=== PATIENT | female | born 1935 | race Caucasian/White ===

== ENCOUNTER 2017-10-18 15:35 | Outpatient (CLI) | payer MEDICARE, OTHER | END 2017-10-18 15:36 | disposition home or self-care (01) | LOC: BICMAMMO 15:35 | PROVIDERS: ATTEND Internal Medicine | DX: Z12.31 Encounter for screening mammogram for malignant neoplasm of breast (principal) | CPT/HCPCS: 77063; 77067 ==

== ENCOUNTER 2018-12-12 08:46 | Outpatient (CLI) | payer MEDICARE, OTHER ==
--- NOTE | 2018-12-12 09:58 | CT ---
Head CT with and without contrast: 12/12/2018 COMPARISON: 12/09/2006 HISTORY: Memory loss, dizzy spells at night, dementia TECHNIQUE: Axial CT imaging at 5 mm intervals from vertex through skull base with and without IV cont rast FINDINGS: The imaged paranasal sinuses and mastoid air cells are well aerated. No displaced calvarial fracture. The noncontrast enhanced imaging demonstrates no intracranial hemorrhage, midline shift, or mass effe ct. Multifocal periventricular, deep, and subcortical white matter hypodensity noted, evidence of small vessel disease. Postcontrast imaging demonstrates no abnormal enhancement within the brain parenchyma. This study is not tailored to assess the arterial structures. IMPRESSION: No acute findings. Chronic findings as described above.
[2018-12-12] MEDS ORDERED: ISOVUE-370 76%-LOCM 1 ML ONE (10:47)
== END 2018-12-12 08:47 | disposition home or self-care (01) ==
LOC: BICCT 08:46
PROVIDERS: ATTEND Internal Medicine
DX: R42 Dizziness and giddiness (principal); R41.3 Other amnesia; I67.82 Cerebral ischemia; R90.82 White matter disease, unspecified
CPT/HCPCS: 70470; Q9966

== ENCOUNTER 2021-10-03 16:41 | Observation (INO) | payer MEDICARE ==
[2021-10-03] MEDS ORDERED: Acetaminophen 500 MG TAB ONE (17:18)
[2021-10-03 17:30] LABS: #Monocytes 0.5 thou/uL (0.11-0.59); #Neutrophils 5.2 thou/uL (1.40-6.50); %Basophils 0.1 % (0.0-1.0); %Eosinophils 0.3 % (0.0-10.0); %Lymphocytes 14.7 % (21.0-51.0); %Monocytes 7.6 % (0.0-10.0); %Neutrophils 77.3 % (42.0-75.0); Hemoglobin 11.7 g/dL (12.0-16.0); Mean Corpuscular HGB CONC 32.1 g/dL (32.0-36.0); Mean Corpuscular Hemoglobin 32.2 pg (27.0-31.0); Mean Platelet Volume 6.6 fL (7.4-10.4); Platelet Count 253 thou/uL (130-400); Red Blood Cell (RBC) Count 3.63 mill/uL (4.20-5.40); White Blood Cell (WBC) Count 6.7 thou/uL (4.8-10.8)
[2021-10-03 17:55] LABS: ALT (SGPT) Less than 7 U/L (8-55); AST (SGOT) 10 U/L (5-34); Albumin 3.6 g/dL (3.4-4.8); Alkaline Phosphatase 77 U/L (40-110); Anion Gap 14 mmol/L (10-20); BUN (Urea Nitrogen) 14 mg/dL (9.8-20.1); Bilirubin, Total 0.8 mg/dL (0.2-1.2); Calc. Creatinine Clearance 0 mL/min (70-130); Calcium 8.9 mg/dL (7.8-10.44); Carbon Dioxide 26 mmol/L (23-31); Chloride 102 mmol/L (98-107); Estimated GFR 73; Globulin 3.4 g/dL (2.4-3.5); Glucose 107 mg/dL (83-110); Potassium 4.2 mmol/L (3.5-5.1); Sodium 138 mmol/L (136-145)
[2021-10-03 18:08] LABS: SARS-CoV-2 NAA Rapid Test DETECTED (NotDetected)
[2021-10-03 18:18] LABS: CKMB 0.7 ng/mL (0-6.6)
[2021-10-03] MEDS ORDERED: Aspirin 325 MG TAB ONE (18:26)
[2021-10-03 19:03] LABS: Bilirubin Negative (Negative); Blood, Urine Negative (Negative); Clarity Turbid (Clear); Glucose, Urine (Dipstick) Normal (Negative); Ketone, Urine Negative (Negative); Leukocyte Negative Leu/uL (Negative); Nitrite Negative (Negative); Protein, Urine (Dipstick) 50 mg/dL (Neg-Trace); RBC/HPF 0-3 HPF (0-3); Specific Gravity, Urine 1.023 (1.002-1.036); Squamous Epithelial 0-3 HPF (0-3); Urobilinogen Normal mg/dL (Less than 2); WBC/HPF 0-3 HPF (0-3)
[2021-10-03 19:09] LABS: Troponin I 0.054 ng/mL (< 0.028)
[2021-10-03 19:16] LABS: Bacteria/HPF 1+ HPF (None Seen); Mucous/LPF 2+ LPF (<2+)
[2021-10-03] MEDS ORDERED: Acetaminophen 325 MG TAB PO PRN (20:49)
[2021-10-03] MEDS ORDERED: Clopidogrel Bisulfate 75 MG TAB PO SCH (20:49)
[2021-10-03] MEDS ORDERED: Bisacodyl 5 MG TAB PO PRN (20:49)
[2021-10-03] MEDS ORDERED: Nitroglycerin 0.4 MG TAB (25 Tab Bottle) SL PRN (20:49)
[2021-10-03] MEDS ORDERED: Ondansetron PF 4 MG/2 ML Vial IVP PRN (20:49)
[2021-10-03] MEDS ORDERED: Zolpidem Tartrate 5 MG TAB PO PRN (20:49)
[2021-10-03] MEDS ORDERED: Guaifenesin DM 100-10/5 ML UDCUP PO PRN (20:49)
[2021-10-03] MEDS ORDERED: HYDROcodone/Acetaminophen 5/325 mg Tablet PO PRN (20:49)
[2021-10-03] MEDS ORDERED: hydrALAZINE 20 MG/ML VIAL SLOW IVP PRN (20:53)
[2021-10-03] MEDS ORDERED: Benzonatate 100 MG CAP PO PRN (20:54)
[2021-10-03] MEDS ORDERED: Dexamethasone 1 MG TAB PO SCH (21:15)
[2021-10-03 23:56] LABS: Troponin I 0.051 ng/mL (< 0.028)
[2021-10-04 04:18] LABS: #Lymphocytes 0.8 thou/uL (1.20-3.40); #Monocytes 0.2 thou/uL (0.11-0.59); #Neutrophils 2.8 thou/uL (1.40-6.50); %Basophils 0.2 % (0.0-1.0); %Eosinophils 0.3 % (0.0-10.0); %Monocytes 6.4 % (0.0-10.0); Hemoglobin 11.3 g/dL (12.0-16.0); Mean Corpuscular Hemoglobin 32.4 pg (27.0-31.0); Mean Platelet Volume 6.6 fL (7.4-10.4); Platelet Count 208 thou/uL (130-400); RBC Distribution Width 14.9 % (11.5-14.5); Red Blood Cell (RBC) Count 3.48 mill/uL (4.20-5.40); White Blood Cell (WBC) Count 3.8 thou/uL (4.8-10.8)
[2021-10-04 04:40] LABS: Albumin 3.2 g/dL (3.4-4.8); Anion Gap 12 mmol/L (10-20); BUN (Urea Nitrogen) 16 mg/dL (9.8-20.1); BUN/Creatinine Ratio 20.78; Calc. Creatinine Clearance 42 mL/min (70-130); Carbon Dioxide 27 mmol/L (23-31); Chloride 106 mmol/L (98-107); Estimated GFR 75; Glucose 119 mg/dL (83-110); Potassium 3.9 mmol/L (3.5-5.1); Sodium 141 mmol/L (136-145)
[2021-10-04] MEDS ORDERED: Levothyroxine Sodium 25 MCG TAB PO SCH (09:45)
[2021-10-04] MEDS ORDERED: Ferrous Sulfate 325 MG TAB PO SCH (09:45)
[2021-10-04] MEDS: Dexamethasone 1 MG TAB PO SCH ×2 (10:22→16:22)
[2021-10-04] MEDS: Zinc Sulfate 220 MG CAP PO SCH (10:22)
[2021-10-04] MEDS: Clopidogrel Bisulfate 75 MG TAB PO SCH (10:22)
[2021-10-04] MEDS: Enoxaparin Sodium 40 MG/0.4 ML SYRINGE SC SCH (10:23)
[2021-10-04] MEDS: Lisinopril 10 MG TAB PO SCH (10:35)
[2021-10-04 12:48] VITALS: BMI 21.8
[2021-10-04] MEDS ORDERED: Mirtazapine 15 MG TAB PO SCH (21:00)
[2021-10-05 05:01] LABS: #Lymphocytes 1.2 thou/uL (1.20-3.40); #Monocytes 0.3 thou/uL (0.11-0.59); #Neutrophils 1.9 thou/uL (1.40-6.50); %Eosinophils 0.6 % (0.0-10.0); %Lymphocytes 33.9 % (21.0-51.0); %Neutrophils 55.5 % (42.0-75.0); Hemoglobin 10.5 g/dL (12.0-16.0); Mean Corpuscular HGB CONC 33.4 g/dL (32.0-36.0); Mean Corpuscular Hemoglobin 33.5 pg (27.0-31.0); Mean Platelet Volume 6.8 fL (7.4-10.4); Platelet Count 194 thou/uL (130-400); RBC Distribution Width 14.6 % (11.5-14.5); Red Blood Cell (RBC) Count 3.12 mill/uL (4.20-5.40); White Blood Cell (WBC) Count 3.4 thou/uL (4.8-10.8)
[2021-10-05 05:27] LABS: ALT (SGPT) Less than 7 U/L (8-55); AST (SGOT) 8 U/L (5-34); Alkaline Phosphatase 63 U/L (40-110); Anion Gap 12 mmol/L (10-20); BUN (Urea Nitrogen) 16 mg/dL (9.8-20.1); Bilirubin, Total 0.3 mg/dL (0.2-1.2); CRP (Inflammatory) 1.98 mg/dL (= or < 0.5); Calc. Creatinine Clearance 46 mL/min (70-130); Calcium 8.8 mg/dL (7.8-10.44); Carbon Dioxide 27 mmol/L (23-31); Chloride 107 mmol/L (98-107); Estimated GFR 84; Globulin 3.1 g/dL (2.4-3.5); Glucose 92 mg/dL (83-110); Potassium 3.8 mmol/L (3.5-5.1); Protein, Total 6.1 g/dL (5.8-8.1); Sodium 142 mmol/L (136-145)
[2021-10-05] MEDS ORDERED: Levothyroxine Sodium 25 MCG TAB PO SCH (06:00)
[2021-10-05] MEDS ORDERED: Ferrous Sulfate 325 MG TAB PO SCH (08:00)
[2021-10-05] MEDS: Clopidogrel Bisulfate 75 MG TAB PO SCH (09:51)
[2021-10-05] MEDS: Enoxaparin Sodium 40 MG/0.4 ML SYRINGE SC SCH (09:51)
[2021-10-05] MEDS: Zinc Sulfate 220 MG CAP PO SCH (09:52)
[2021-10-05] MEDS: Lisinopril 10 MG TAB PO SCH (09:52)
[2021-10-05] MEDS: Dexamethasone 1 MG TAB PO SCH ×2 (09:59→17:22)
[2021-10-05 18:39] VITALS: BP 131/60; TEMP 97.9
[2021-10-06] MEDS ORDERED: Donepezil HCl 10 MG TAB PO SCH (21:00)
== END 2021-10-05 20:10 ==
LOC: ERS 16:41 → 2NO 18:26
PROVIDERS: ADMIT Family Medicine; ATTEND Family Medicine
DX: U07.1 COVID-19 (principal); S09.90XA Unspecified injury of head, initial encounter; G93.41 Metabolic encephalopathy; G30.9 Alzheimer's disease, unspecified; F02.80 Dementia in other diseases classified elsewhere, unspecified severity, without behavioral disturbance, psychotic disturbance, mood disturbance, and anxiety; I10 Essential (primary) hypertension; R77.8 Other specified abnormalities of plasma proteins; E03.9 Hypothyroidism, unspecified; M81.0 Age-related osteoporosis without current pathological fracture; I48.91 Unspecified atrial fibrillation; M43.16 Spondylolisthesis, lumbar region; Z85.038 Personal history of other malignant neoplasm of large intestine; Z79.83 Long term (current) use of bisphosphonates; Z79.890 Hormone replacement therapy; Z79.899 Other long term (current) drug therapy; Z88.0 Allergy status to penicillin; Z88.5 Allergy status to narcotic agent; Z88.8 Allergy status to other drugs, medicaments and biological substances; W18.30XA Fall on same level, unspecified, initial encounter
CPT/HCPCS: 51701; 70450; 71046; 80053 ×2; 80069; 82553; 82962; 83605; 83880; 84484 ×2; 85025 ×3; 86140 ×2; 87040; 87086; 93005; 94760 ×2; 99285; U0002; 36415; 36416; 81003; 81015; 96372; G0378; J1650; J8540

== ENCOUNTER 2022-08-04 11:50 | Outpatient (CLI) | payer MEDICARE | END 2022-08-04 11:51 | disposition home or self-care (01) | LOC: PET 11:50 | PROVIDERS: ATTEND Psychiatry & Neurology Neurology | DX: R41.3 Other amnesia (principal); G31.9 Degenerative disease of nervous system, unspecified; I67.82 Cerebral ischemia | CPT/HCPCS: 70551; 78803; A9552; 70553 ==

== ENCOUNTER 2023-09-17 14:59 | Outpatient (CLI) | payer MEDICARE | END 2023-09-17 15:00 | disposition home or self-care (01) | LOC: BICMAMMO 14:59 | PROVIDERS: ATTEND Internal Medicine | DX: Z12.31 Encounter for screening mammogram for malignant neoplasm of breast (principal); Z13.820 Encounter for screening for osteoporosis; Z78.0 Asymptomatic menopausal state; M85.851 Other specified disorders of bone density and structure, right thigh; M85.852 Other specified disorders of bone density and structure, left thigh | CPT/HCPCS: 77063; 77067; 77080 ==